=== PATIENT | male | born 1965 | race Hispanic/Latino ===

== ENCOUNTER 2018-02-28 10:43 | Outpatient (CLI) | payer BC | END 2018-02-28 10:44 | disposition home or self-care (01) | LOC: BICRAD 10:43 | PROVIDERS: ATTEND Internal Medicine Rheumatology | DX: M25.551 Pain in right hip (principal) ==

== ENCOUNTER 2018-09-08 13:37 | Outpatient (CLI) | payer BC ==
--- NOTE | 2018-09-08 15:51 | RAD ---
LUMBAR SPINE FOUR VIEWS: Indication: Low back pain. FINDINGS: There is advanced disc degenerative disease at L4-5. There is partial sacralization of L5. There is m oderate disc degenerative disease at L3-4. There is mild degenerative disease at L1-2 and L2-3. Spina l alignment is preserved. No acute fracture is evident. No pars defect is evident. IMPRESSION: 1. Moderate spondylosis of the lumbar spine. 2. Partial sacralization of L5. POS: [facility]
== END 2018-09-08 13:38 | disposition home or self-care (01) ==
LOC: BICRAD 13:37
PROVIDERS: ATTEND Internal Medicine Rheumatology
DX: M46.1 Sacroiliitis, not elsewhere classified (principal); M25.551 Pain in right hip; M79.604 Pain in right leg; M47.816 Spondylosis without myelopathy or radiculopathy, lumbar region; Q76.49 Other congenital malformations of spine, not associated with scoliosis
CPT/HCPCS: 72110

== ENCOUNTER 2018-10-22 08:51 | Outpatient (CLI) | payer BC ==
--- NOTE | 2018-10-22 10:27 | MRI ---
LUMBAR SPINE MRI WITHOUT IV CONTRAST: HISTORY: Herniated intervertebral disk of lumbar spine. Low back pain for years. Bilateral leg pain and ting ling. COMPARISON: 05/15/2013. FINDINGS: There is extensive generalized disk-osteophytosis and facet arthrosis with disk desiccation changes a nd ligament and facet hypertrophic changes throughout the visualized lower thoracic and lumbar spine. At T10-T11, there is a prominent posterior disk-osteophyte with moderate lateral recess stenosis and mild central canal stenosis and foraminal stenosis. Mild disk-osteophyte at T11-T12 without significant associated stenosis. At T12-L1, diffuse disk-osteophytic changes with mild lateral recess stenosis and right foraminal robyn nosis. At L1-L2, there is diffuse disk bulging and disk-osteophytic change with mild lateral recess stenosis and bilateral foraminal stenosis. At L2-L3, there is diffuse disk-osteophytosis with mild bilateral recess stenosis and bilateral yanni inal stenosis. At L3-L4, diffuse disk-osteophytosis with mild central canal and lateral recess stenosis and moderate bilateral foraminal stenosis. At L4-L5, diffuse disk-osteophytosis with some focal disk extrusion and some inferior discal extensio n with resultant mild central canal and lateral recess stenosis and severe bilateral foraminal stenos is with associated central annular fissure. Diffuse disk-osteophytosis at L5-S1 with mild central canal and moderate lateral recess stenosis and moderate to severe bilateral foraminal stenosis. Moderate type I end plate changes at L5-S1. IMPRESSION: 1. Moderate to severe generalized disk-osteophytosis with disk desiccation changes with variable sev erity of central canal, lateral recess, and foraminal stenosis throughout the lower thoracic and lumb ar spine showing some generalized progression when compared to the prior MRI. 2. Mixed, including some type I end plate changes at L5-S1. POS: [facility]
== END 2018-10-22 08:52 | disposition home or self-care (01) ==
LOC: MRI 08:51
PROVIDERS: ATTEND Neurological Surgery
DX: M51.26 Other intervertebral disc displacement, lumbar region (principal); M25.78 Osteophyte, vertebrae
CPT/HCPCS: 72148

== ENCOUNTER 2022-02-13 10:49 | Outpatient (CLI) | payer OTHER | END 2022-02-13 10:50 | disposition home or self-care (01) | LOC: BICRAD 10:49 | PROVIDERS: ATTEND Internal Medicine | DX: Z02.71 Encounter for disability determination (principal); M47.816 Spondylosis without myelopathy or radiculopathy, lumbar region | CPT/HCPCS: 72100 ==